=== PATIENT | male | born 1960 | race Caucasian/White ===

== ENCOUNTER 2017-02-20 10:44 | Inpatient (IN) | payer OTHER ==
[2017-02-20 11:08] VITALS: BMI 16.1
[2017-02-20] MEDS ORDERED: SODIUM CHLORIDE 0.9% 1000 ML INFUS.BAG IV ONE (11:16)
--- NOTE | 2017-02-20 11:26 | PDOC ---
History of Present Illness - General Chief Complaint: Shortness of Breath Stated Complaint: DIFFICULTY BREATHING Time Seen by Provider: 02/20/17 11:03 History Source: Patient Exam Limitations: No Limitations - History of Present Illness Initial Comments: 02/20/17 11:23 The patient is a 56M with a PMH of HIV who presents to the ED from his PCP's office (Dr. Burt) with complaints of a cough. The patient states that he has had 2 weeks of worsening cough. He has tried taking robotussin with no relief. He went to his PCP's office today and she noticed he was tachycardic and sent him to the ER. He denies any myalgias, CP, fever, chills, sore throat, nasal congestion or rhinorrhea. His only acute complaints are cough and difficulty breathing. Past History - Past Medical History Allergies/Adverse Reactions: Allergies Allergy/AdvReac Type Severity Reaction Status Date / Time No Known Allergies Allergy Verified 02/20/17 11:01 Home Medications: Ambulatory Orders Albuterol Sulfate Inhaler - [Ventolin HFA Inhaler -] 2 inh PO Q6H PRN #1 inhaler 10/25/16 Atenolol [Tenormin -] 50 mg PO DAILY #30 tablet 10/25/16 Efavirenz/Emtricitab/Tenofovir [Atripla Tablet -] 1 tab PO HS #30 tab 10/25/16 Fenofibrate,Micronized [Fenofibrate] 67 mg PO DAILY #30 capsule 10/25/16 Lactose-Reduced Food [Ensure Liquid] 237 ml PO TID #90 liquid 10/25/16 Loratadine [Claritin -] 10 mg PO DAILY #30 tablet 10/25/16 Multivitamins [Multivit ([facility] Formulary)] 1 tab PO DAILY #30 tab 10/25/16 Nifedipine [Nifedipine ER] 90 mg PO DAILY #30 tablet.er 10/25/16 Tiotropium [place] [Spiriva Respimat] 1 inh PO DAILY #1 mist.inhal 10/25/16 Anemia: No Asthma: No Cancer: No Cardiac Disorders: No CVA: No COPD: Yes (copd and chronic bronchitis) CHF: No Dementia: No Diabetes: No GI Disorders: No Disorders: No HTN: Yes Hypercholesterolemia: Yes Liver Disease: Yes (chronic hep b) Seizures: No Thyroid Disease: No - Surgical History Orthopedic Surgery: Yes (l ankle and r tibia + metal pins) - Suicide/Smoking/Psychosocial Hx Smoking Status: Yes Smoking History: Unknown if ever smoked Have you smoked in the past 12 months: Yes Number of Cigarettes Smoked Daily: 5 If you are a former smoker, when did you quit?: 1 week Cigars Per Day: 0 Hx Alcohol Use: Yes (daily 3-4 beers) Drug/Substance Use Hx: Yes (daily mj) Substance Use Type: Alcohol (2 beers daily), Marijuana Hx Substance Use Treatment: No Review of Systems - Review of Systems Able to Perform ROS?: Yes Comments:: 02/20/17 11:27 GENERAL/CONSTITUTIONAL: No fever or chills. No weakness. HEAD, EYES, EARS, NOSE AND THROAT: No change in vision. No ear pain or discharge. No sore throat. GASTROINTESTINAL: No nausea, vomiting, diarrhea, constipation, or abdominal pain. GENITOURINARY: No dysuria, frequency, hematuria, or change in urination. CARDIOVASCULAR: No chest pain, palpitations, or lightheadedness. RESPIRATORY: Positive for cough and shortness of breath. No wheezing or hemoptysis. MUSCULOSKELETAL: No joint or muscle swelling or pain. No neck or back pain. SKIN: No rash or lesions. NEUROLOGIC: No headache, numbness, tingling, weakness, loss of consciousness, or change in strength/sensation. ENDOCRINE: No increased thirst. No abnormal weight change. HEMATOLOGIC/LYMPHATIC: No anemia, easy bleeding, or history of blood clots. ALLERGIC/IMMUNOLOGIC: No hives or skin allergy. Is the patient limited Sami proficient: No *Physical Exam - Vital Signs Last Vital Signs Temp Pulse Resp BP Pulse Ox 100.7 F H 109 H 22 97/60 98 02/20/17 11:02 02/20/17 11:02 02/20/17 11:02 02/20/17 11:02 02/20/17 11:02 - Physical Exam Comments: 02/20/17 11:28 GENERAL: Well developed, well nourished. Awake and alert. No acute distress. HEENT: Normocephalic, atraumatic. Hearing grossly normal. Moist mucous membranes. NECK: Supple. Full ROM. No JVD. CARDIOVASCULAR: Regular rate and rhythm. No murmurs, rubs, or gallops. PULMONARY: Bibasilar mild rhonchi on expiration. ABDOMINAL: Soft. Non-tender. Non-distended. No rebound or guarding. GENITOURINARY: No CVA tenderness bilaterally. MUSCULOSKELETAL: Normal range of motion at all joints. No bony deformities or tenderness. EXTREMITIES: No cyanosis. No clubbing. No edema. No calf tenderness. SKIN: Warm and dry. Normal capillary refill. No rashes. No jaundice. NEUROLOGICAL: Alert, awake, appropriate. Cranial nerves 2-12 intact. Normal speech. Gait is normal without ataxia. PSYCHIATRIC: Cooperative. Good eye contact. Appropriate mood and affect. ED Treatment Course - LABORATORY CBC & Chemistry Diagram: 02/20/17 11:40 02/20/17 11:40 - RADIOLOGY Radiology Studies Ordered: Category Date Time Status CHEST PA & LAT [RAD] Stat Radiology 02/20/17 11:17 Ordered Medical Decision Making - Medical Decision Making 02/20/17 11:30 The patient is a 56M with a PMH of HIV who presents to the ED with complaints of a cough x 2 weeks. He is febrile and tachycardic with bibasilar rhonchi on expiration. Will follow septic protocol. Pending labs and imaging. Will monitor closely. *DC/Admit/Observation/Transfer Diagnosis at time of Disposition: Cough Dyspnea Qualifiers: Dyspnea type: shortness of breath Qualified Code(s): R06.02 - Shortness of breath; R06.00 - Dyspnea, unspecified; R06.01 - Orthopnea - Discharge Dispostion Condition at time of disposition: Stable Admit: Yes - Referrals Referrals: Estefania Bojorquez COUGAR HUNTER [Primary Care Provider] - - Patient Instructions - Post Discharge Activity
[2017-02-20 11:45] LABS: BASO % 1.4 % (0-2.0); EOS % 0.1 % (0-4.5); HEMATOCRIT 40.2 % (35.4-49); HEMOGLOBIN 13.7 GM/dL (11.7-16.9); LYMPH % 27.3 % (8-40); MCH 35.2 pg (25.7-33.7); MCHC 34.1 g/dl (32.0-35.9); MEAN CELL VOLUME 103.4 fl (80-96); MEAN PLT VOLUME 8.2 fl (7.5-11.1); MONO % 16.5 % (3.8-10.2); NEUT % 54.7 % (42.8-82.8); PLATELET COUNT 163 K/MM3 (134-434); RBC 3.89 M/mm3 (4.00-5.60); RDW 12.4 % (11.9-15.9); WHITE BLOOD COUNT 5.6 K/mm3 (4.0-10.0)
[2017-02-20] MEDS ORDERED: ACETAMINOPHEN 325 MG TABLET (FP) PO ONE (11:52)
[2017-02-20 11:53] LABS: VENOUS PC02 31.1 mmHg (38-52); VENOUS PH 7.44 (7.32-7.42)
[2017-02-20] MEDS ORDERED: ACETAMINOPHEN 325 MG TABLET (FP) ONE ×2 (11:53→20:42)
[2017-02-20 11:58] LABS: INR 0.99 (0.82-1.09); PROTHROMBIN TIME (PATIENT) 11.2 SEC (9.98-11.88)
[2017-02-20 12:02] LABS: ACTIVATED PTT 33.5 SECONDS (26.9-34.4)
[2017-02-20 12:10] LABS: ALBUMIN 3.2 g/dl (3.4-5.0); ANION GAP 8 (8-16); BILIRUBIN,TOTAL 0.5 mg/dL (0.2-1.0); BLOOD UREA NITROGEN 13 mg/dL (7-18); CALCIUM 8.1 mg/dL (8.5-10.1); CHLORIDE 103 mmol/L (98-107); CO2 21 mmol/L (21-32); CREATININE 0.9 mg/dL (0.7-1.3); GLUCOSE,RANDOM 117 mg/dL (74-106); POTASSIUM 4.1 mmol/L (3.5-5.1); SGOT/AST 50 U/L (15-37); SGPT/ALT 40 U/L (12-78); SODIUM 132 mmol/L (136-145); TOT PROT 7.3 g/dl (6.4-8.2)
[2017-02-20 12:13] LABS: ALK PHOS 85 U/L (45-117)
--- NOTE | 2017-02-20 12:43 | EKG ---
Test Reason : Blood Pressure : / mmHG Vent. Rate : 094 BPM Atrial Rate : 094 BPM P-R Int : 128 ms QRS Dur : 088 ms QT Int : 338 ms P-R-T Axes : 080 072 073 degrees QTc Int : 422 ms NORMAL SINUS RHYTHM POSSIBLE LEFT ATRIAL ENLARGEMENT BORDERLINE ECG WHEN COMPARED WITH ECG OF 17-SEP-2012 13:23, NO SIGNIFICANT CHANGE WAS FOUND Confirmed by CHANDRIKA FLORENCE MD ([id number]) on 02/20/2017 12:43:16 PM Referred By: Confirmed By:CHANDRIKA FLORENCE MD
--- NOTE | 2017-02-20 13:01 | PDOC ---
Attending Attestation - Resident Resident Name: Shaji Odonnell - ED Attending Attestation I have performed the following: I have examined & evaluated the patient, The case was reviewed & discussed with the resident, I agree w/resident's findings & plan, Exceptions are as noted - HPI HPI: 02/20/17 12:52 "The patient is a 55 year old man with HIV (atripla, follows at [facility] with Estefania Jaramillo), ex-cocaine user, smokes marijuana, tobacco cigarettes, alcohol, and hypertension presents to the emergency department with 2 weeks of non-productive cough and SOB. He denies CP. Denies leg swelling. Endorses subjective fevers and chills. Denies abd pain/N/V. Denies dysuria. The patient was seen at [facility] today and was found to be tachycardic and hypoxic to low 90s. He denies throat pain, rhinorrhea, or nasal congestion. He denies dysuria, frequency, urgency and hematuria. Allergies: NKDA PCP; Dr. Jaramillo" - Physicial Exam PE: 02/20/17 12:53 "GENERAL: Awake, alert, and fully oriented, in no acute distress HEAD: No signs of trauma EYES: PERRLA, EOMI, sclera anicteric, conjunctiva clear ENT: Auricles normal inspection, hearing grossly normal, nares patent, oropharynx clear without exudates. Moist mucosa NECK: Nontender, no stepoffs, Normal ROM, supple, no lymphadenopathy, JVD, or masses LUNGS: diffuse rhonchi, no wheezes HEART: Regular rate and rhythm, normal S1 and S2, no murmurs, rubs or gallops ABDOMEN: Soft, nontender, normoactive bowel sounds. No guarding, no rebound. No masses EXTREMITIES: Normal range of motion, no edema. No clubbing or cyanosis. No cords, erythema, or tenderness NEUROLOGICAL: Cranial nerves II through XII intact. 5/5 strength and sensation in all extremities, Normal speech, normal gait SKIN: Warm, Dry, normal turgor, no rashes or lesions noted. " - Medical Decision Making 02/20/17 12:54 56 M with HIV presenting with cough and SOB, found to be febrile, hypoxic, and tachycardic. PNA vs influenza/viral URI. Pt with undetectable VL previously but will check [facility] for possible PCP. - Labs, cultures - CXR - IVF, tylenol, abx - Steroids if PCP suspected - Consult w/ Dr. Ni (ID) - Admit
[2017-02-20 14:04] LABS: URINE APPEARANCE SLCLOUDY; URINE BLOOD NEGATIVE (NEGATIVE); URINE COLOR AMBER; URINE GLUCOSE (UA) NEGATIVE (NEGATIVE); URINE KETONE NEGATIVE (NEGATIVE); URINE LEUK ESTERASE NEGATIVE (NEGATIVE); URINE NITRITE NEGATIVE (NEGATIVE)
[2017-02-20 14:22] LABS: URINE PROTEIN 2+ (NEGATIVE)
[2017-02-20 14:26] LABS: EPI CELLS RARE /HPF (FEW); URINE BACTERIA RARE /hpf (NONE SEEN); URINE HYALINE CAST 7 /lpf; URINE MUCUS RARE
[2017-02-20] MEDS ORDERED: cefTRIAXone 1 GM/50 ML BAG (PRE-DOCKED) IVPB SCH (16:45)
[2017-02-20] MEDS ORDERED: CEFTRIAXONE 1 GM/50 ML BAG ONE (17:02)
--- NOTE | 2017-02-20 17:17 | PN ---
Progress Note (short form) - Note Progress Note: ID consult dictated imp/reccd sent from [facility] with SOB and tachycardia 56 year old man with HIV for over 30 years- well controlled, undectactable viral load, on atripla smokes and drinks beer +marijuana use no injection drug use or pills about two weeks ago started coughing and became SOB with exertion no hemoptysis (recent PPD negative) he stopped smoking no beer either unable to eat due to SOB, drinking soup no dysphagia febrile to 100.7 in ED influenza screen negative COPD exacerbation ?pneumonia stable HIV cd4 count 655, wsuppressed viral load- doubt OI history hep B etoh/cig use cultures sent rocephin/zithromax-CAP treatment ct scan chest legionella urinary antigen ?steroids continue atripla
[2017-02-20] MEDS ORDERED: ACETAMINOPHEN 325 MG TABLET (FP) PO PRN (17:47)
[2017-02-20] MEDS: CEFTRIAXONE 1 G/50 ML PREMIX 50 ML IVPB SCH (18:01)
[2017-02-20] MEDS: ATENOLOL 50 MG TABLET (FP) PO SCH (18:01)
[2017-02-20] MEDS ORDERED: AZITHROMYCIN IVPB 500 MG in DEXTROSE 5%-WATER - 250 ML IVPB ONE (19:00)
[2017-02-20] MEDS ORDERED: AZITHROMYCIN IVPB 250 ML IVPB ONE (19:34)
[2017-02-20] MEDS ORDERED: ALBUTEROL SO4 2.5/IPRATROPIUM 0.5 INH SOL 3 ML VIAL.NEB. NEB SCH (20:00)
--- NOTE | 2017-02-20 20:02 | HP ---
CHIEF COMPLAINT: Fever and cough PCP: Dr. Estefania Jaramillo, [facility] HISTORY OF PRESENT ILLNESS: 55 year-old male with HTN, HLD, HIV on Atripla, COPD, alcohol dependence, chronic Hep B, and current everyday smoker, presents with cough, SOB, and subjective fever, chills x 2 weeks. Earlier today he went to the [facility] where he was found to be tachycardic and hypoxic to the low 90s. He was directed to the ED. ER course was notable for: (1) T100.7-->102.3; p109 BP 97/60 (2) WBC 5.6k; Na 132 (3) CXR: unremarkable (4) CT chest: possible pneumonia Recent Travel: No PAST MEDICAL HISTORY: Hypertension HIV COPD Alcohol dependence Chronic Hep B PAST SURGICAL HISTORY: Left ankle Right tibia Social History: Smoking: current every day smoker Alcohol: beer Drugs: marijuana; former cocaine user Family History: Allergies No Known Allergies Allergy (Verified 02/20/17 11:01) HOME MEDICATIONS: Home Medications Medication Instructions Recorded Albuterol Sulfate Inhaler - 2 inh PO Q6H PRN #1 inhaler 10/25/16 [Ventolin HFA Inhaler -] Atenolol [Tenormin -] 50 mg PO DAILY #30 tablet 10/25/16 Efavirenz/Emtricitab/Tenofovir 1 tab PO HS #30 tab 10/25/16 [Atripla Tablet -] Fenofibrate,Micronized 67 mg PO DAILY #30 capsule 10/25/16 [Fenofibrate] Lactose-Reduced Food [Ensure 237 ml PO TID #90 liquid 10/25/16 Liquid] Loratadine [Claritin -] 10 mg PO DAILY #30 tablet 10/25/16 Multivitamins [Multivit ([facility] 1 tab PO DAILY #30 tab 10/25/16 Formulary)] Nifedipine [Nifedipine ER] 90 mg PO DAILY #30 tablet.er 10/25/16 Tiotropium [place] [Spiriva 1 inh PO DAILY #1 mist.inhal 10/25/16 Respimat] REVIEW OF SYSTEMS CONSTITUTIONAL: +fever, chills Absent: diaphoresis, generalized weakness, malaise, loss of appetite, weight change HEENT: Absent: rhinorrhea, nasal congestion, throat pain, throat swelling, difficulty swallowing, mouth swelling, ear pain, eye pain, visual changes CARDIOVASCULAR: Absent: chest pain, syncope, palpitations, irregular heart rate, lightheadedness , peripheral edema RESPIRATORY: +SOB, cough Absent: dyspnea with exertion, orthopnea, wheezing, stridor, hemoptysis GASTROINTESTINAL: Absent: abdominal pain, abdominal distension, nausea, vomiting, diarrhea, constipation, melena, hematochezia GENITOURINARY: Absent: dysuria, frequency, urgency, hesitancy, hematuria, flank pain, genital pain MUSCULOSKELETAL: Absent: myalgia, arthralgia, joint swelling, back pain, neck pain SKIN: Absent: rash, itching, pallor HEMATOLOGIC/IMMUNOLOGIC: Absent: easy bleeding, easy bruising, lymphadenopathy, frequent infections ENDOCRINE: Absent: unexplained weight gain, unexplained weight loss, heat intolerance, cold intolerance NEUROLOGIC: Absent: headache, focal weakness or paresthesias, dizziness, unsteady gait, seizure, mental status changes, bladder or bowel incontinence PSYCHIATRIC: Absent: anxiety, depression, suicidal or homicidal ideation, hallucinations. PHYSICAL EXAMINATION Vital Signs - 24 hr 02/20/17 02/20/17 02/20/17 11:02 11:48 12:00 Temperature 100.7 F H Pulse Rate 109 H Pulse Rate [ Apical] Respiratory 22 Rate Blood Pressure 97/60 Blood Pressure [Right Arm] O2 Sat by Pulse 98 96 96 Oximetry (%) 02/20/17 02/20/17 16:00 16:14 Temperature 98.4 F Pulse Rate Pulse Rate [ 78 Apical] Respiratory 18 Rate Blood Pressure Blood Pressure 99/67 [Right Arm] O2 Sat by Pulse 96 Oximetry (%) GENERAL: Awake, alert, and fully oriented, in no acute distress. HEAD: Normal with no signs of trauma. EYES: Pupils equal, round and reactive to light, extraocular movements intact, sclera anicteric, conjunctiva clear. No lid lag. EARS, NOSE, THROAT: Ears normal, nares patent, oropharynx clear without exudates. Moist mucous membranes. NECK: Normal range of motion, supple without lymphadenopathy, JVD, or masses. LUNGS: Rhonchi and prolonged expiratory phase on right HEART: Regular rate and rhythm, normal S1 and S2 ABDOMEN: Soft, nontender, not distended, normoactive bowel sounds, no guarding, no rebound, no masses. MUSCULOSKELETAL: Normal range of motion at all joints. No bony deformities or tenderness. No CVA tenderness. UPPER EXTREMITIES: 2+ pulses, warm, well-perfused. No cyanosis. No clubbing. No peripheral edema. LOWER EXTREMITIES: 2+ pulses, warm, well-perfused. No calf tenderness. No peripheral edema. NEUROLOGICAL: Cranial nerves II-XII intact. Normal speech. Normal gait. PSYCHIATRIC: Cooperative. Good eye contact. Appropriate mood and affect. SKIN: Mildly diaphoretic Laboratory Results - last 24 hr 02/20/17 02/20/17 02/20/17 11:40 11:40 11:40 WBC 5.6 D RBC 3.89 L Hgb 13.7 Hct 40.2 MCV 103.4 H MCH 35.2 H MCHC 34.1 RDW 12.4 Plt Count 163 MPV 8.2 Neutrophils % 54.7 D Lymphocytes % 27.3 D Monocytes % 16.5 H D Eosinophils % 0.1 D Basophils % 1.4 PT with INR 11.20 INR 0.99 PTT (Actin FS) 33.5 VBG pH POC VBG pCO2 POC VBG pO2 Mixed VBG HCO3 Sodium 132 L Potassium 4.1 Chloride 103 Carbon Dioxide 21 D Anion Gap 8 BUN 13 D Creatinine 0.9 D Creat Clearance w eGFR > 60 Random Glucose 117 H D Lactic Acid Calcium 8.1 L Total Bilirubin 0.5 D AST 50 H D ALT 40 D Alkaline Phosphatase 85 LD Total Creatine Kinase 100 Troponin I < 0.02 Total Protein 7.3 Albumin 3.2 L Urine Color Urine Appearance Urine pH Ur Specific [place] Urine Protein Urine Glucose (UA) Urine Ketones Urine Blood Urine Nitrite Urine Bilirubin Urine Urobilinogen Ur Leukocyte Esterase Urine WBC (Auto) Urine RBC (Auto) Ur Epithelial Cells Urine Bacteria Hyaline Casts Urine Mucus Blood Type Antibody Screen 02/20/17 02/20/17 02/20/17 11:40 11:40 11:40 WBC RBC Hgb Hct MCV MCH MCHC RDW Plt Count MPV Neutrophils % Lymphocytes % Monocytes % Eosinophils % Basophils % PT with INR INR PTT (Actin FS) VBG pH POC VBG pCO2 POC VBG pO2 Mixed VBG HCO3 Sodium Potassium Chloride Carbon Dioxide Anion Gap BUN Creatinine Creat Clearance w eGFR Random Glucose Lactic Acid 1.8 Calcium Total Bilirubin AST ALT Alkaline Phosphatase LD Total 94 Creatine Kinase Troponin I Total Protein Albumin Urine Color Urine Appearance Urine pH Ur Specific [place] Urine Protein Urine Glucose (UA) Urine Ketones Urine Blood Urine Nitrite Urine Bilirubin Urine Urobilinogen Ur Leukocyte Esterase Urine WBC (Auto) Urine RBC (Auto) Ur Epithelial Cells Urine Bacteria Hyaline Casts Urine Mucus Blood Type O POSITIVE Antibody Screen Negative 02/20/17 02/20/17 11:45 13:37 WBC RBC Hgb Hct MCV MCH MCHC RDW Plt Count MPV Neutrophils % Lymphocytes % Monocytes % Eosinophils % Basophils % PT with INR INR PTT (Actin FS) VBG pH 7.44 H POC VBG pCO2 31.1 L POC VBG pO2 46.0 Mixed VBG HCO3 20.7 Sodium Potassium Chloride Carbon Dioxide Anion Gap BUN Creatinine Creat Clearance w eGFR Random Glucose Lactic Acid Calcium Total Bilirubin AST ALT Alkaline Phosphatase LD Total Creatine Kinase Troponin I Total Protein Albumin Urine Color [place] Urine Appearance Slcloudy Urine pH 5.0 Ur Specific [place] 1.025 Urine Protein 2+ H Urine Glucose (UA) Negative Urine Ketones Negative Urine Blood Negative Urine Nitrite Negative Urine Bilirubin 2.0 Urine Urobilinogen 2.0 Ur Leukocyte Esterase Negative Urine WBC (Auto) 1 Urine RBC (Auto) 2 Ur Epithelial Cells Rare Urine Bacteria Rare Hyaline Casts 7 Urine Mucus Rare Blood Type Antibody Screen ASSESSMENT/PLAN: 55 year-old male with HTN, HLD, HIV on Atripla, COPD, alcohol dependence, chronic Hep B, and current everyday smoker, presents with cough, SOB, and subjective fever and chills x 2 weeks. SIRS possibly secondary to CAP --Temp spike to 102.3; tachycardic to 109; mildly diaphoretic --02/20 CT chest: Left lung base opacity, possible pneumonia; RLL centrilobular nodules, inflammatory v. infectious --no leukocytosis --influenza negative --empiric ceftriaxone (day #1) and azithro (day #1) --duonebs --gentle fluids --ID following Pulmonary nodules Pulmonary lymphadenopathy COPD --additional findings on CT: 4mm sold nodule RUL and 5-6mm solid nodule LLL; right hilar lymph node and mediastinal lymph node larger than previous; increased bronchial wall thickening c/w nonspecific airways disease --pulmonary consult requested --continue Spiriva, duonebs HIV --well-controlled, undetectable viral load --continue Atripla Hypertension --normotensive at time of admission --continue atenolol but hold nifedipine for now due to sepsis Hyperlipidemia --continue fenofibrate --not on statin Alcohol dependence --monitor for s/s of withdrawal --librium PRN Chronic Hepatitis B --stable Hyponatremia --received NS x 1L in ED --repeat in am FEN Fluids: NS @ 50mL/hr Electrolytes: replete as indicated Nutrition: low sodium diet DVT prophylaxis: lovenox, oob, ambulation Physical therapy evaluation Dispo: continues to require inpatient care. Full Code. Visit type - Emergency Visit Emergency Visit: Yes ED Registration Date: 02/20/17 Care time: The patient presented to the Emergency Department on the above date and was hospitalized for further evaluation of their emergent condition. - New Patient This patient is new to me today: Yes Date on this admission: 02/21/17 - Critical Care Critical Care patient: No
[2017-02-20] MEDS ORDERED: PATIENT'S OWN MEDICATION (NON-FORMULARY) (Efavirenz/Emtricitab/Tenofovir 1 TAB) PO SCH (22:00)
--- NOTE | 2017-02-20 22:30 | CONS ---
DATE OF CONSULTATION: DATE OF DICTATION: 02/20/2017 INFECTIOUS DISEASE CONSULTATION REQUESTING PHYSICIAN: Hospitalist Service CONSULTING PHYSICIAN: Cecily Ni M.D. HISTORY OF PRESENT ILLNESS: This is a 56-year-old man who was sent from the [facility] with shortness of breath and tachycardia. He presented to the [facility] today with 2-3 weeks of cough and worsening shortness of breath. He states since the weather changed and became very cold about 2-3 weeks ago, he started having cough. He had yellow sputum. There was no fever. There was no hemoptysis. He was comfortable at rest but was not able to exert himself at all. He denied any chest pain or pressure. There is no history of any travel. He had these symptoms and was sent to the emergency room with these complaints. In the ER he was noted to have a fever of 100.7 and did complain of shortness of breath. PAST MEDICAL HISTORY: Notable for of hypertension, hypercholesterolemia. He has been HIV positive he tells me for at least 30 years and has a history of Hepatitis B. SURGICAL HISTORY: Notable for left ankle and right tibia fractures. He has pins in place. FAMILY HISTORY: Notable for heart disease in his grandparents and his father. His mother of vascular disease. ALLERGIES: He has no known drug allergies. CURRENT MEDICATIONS: Include albuterol inhaler, atenolol, Atripla, fenofibrate, Ensure, Claritin, multivitamins, nifedipine, and Spiriva. SOCIAL HISTORY: He has a roommate who is not sick. He denies any travel. He normally smokes, but has not had a cigarette for 2 weeks. He normally drinks beer, but he has not had a drink for 2 weeks. He occasionally smokes marijuana; he has not been doing this either. He denies any intravenous drug use. REVIEW OF SYSTEMS: He denies fevers or chills. He notes shortness of breath. He has not had not any nausea, vomiting. He has no visual changes. He has no headache. PHYSICAL EXAMINATION: Vital signs: Temperature 100.7 which is temperature in the ER, his pulse is 78 but he is resting comfortably, was 109 on admission, blood pressure 99/67, respiratory rate 18, saturating 96%, he weighs 100 pounds. HEENT: Normocephalic. Eyes are anicteric. Neck: Supple. Lungs: Clear to auscultation. He has diminished breath sounds. His lungs have scattered rhonchi. He has no thrush. Heart: Regular rate and rhythm. Abdomen: Soft, nontender. Extremities: Without edema. LABORATORY: White count is 5.6, hemoglobin is 13.7, platelets are 163. His BUN and creatinine are 13 and 0.9 with a sodium of 132. His LFTs are notable for AST of 50. LDH is normal at 94. Blood cultures are pending. Influenza screen was done and is negative. Chest x-ray was done and shows no active disease. IMPRESSION: In summary, this is a 56-year-old man, admitted with progressive 2 weeks of shortness of breath with cough and yellow sputum, mainly with exertion, no hemoptysis, recent PPD negative, fever to 100.7 in the emergency room with a negative influenza screen. He has been symptomatic for 2 years, suggestive of chronic obstructive pulmonary disease exacerbation, cannot rule out pneumonia with a fever, stable human immunodeficiency virus disease with CD4 of 655 and a suppressed viral load. I doubt he has an opportunistic infection. History of Hepatitis B, ethyl alcohol and cigarette use. Would send cultures. Would treat him with Rocephin and Zithromax for community acquired pneumonia. Would obtain sputum cultures as well as a legionella urinary antigen. Blood cultures have been sent. Would CAT scan his chest and consider steroids. Would continue Atripla at this time. Further recommendations to follow. Case was discussed with the emergency room staff. Lucas [id number]
[2017-02-20] MEDS: TIOTROPIUM BROMIDE 18 MCG/INH (DEVICE W/ 5 CAPSULES) IH SCH (22:47)
[2017-02-20] MEDS: EFAVIRENZ 600 MG TABLET PO SCH (22:47)
[2017-02-20] MEDS: EMTRICITABINE 200MG/TENOFOVIR 300MG PO SCH (22:47)
[2017-02-20] MEDS ORDERED: SODIUM CHLORIDE 1,000 ML IV SCH (23:00)
[2017-02-21] MEDS: ALBUTEROL SO4 2.5/IPRATROPIUM 0.5 INH SOL 3 ML VIAL.NEB. NEB SCH ×5 (00:43→21:52)
[2017-02-21] MEDS ORDERED: chlordiazePOXIDE HCL 25 MG CAPSULE PO PRN (01:38)
[2017-02-21] MEDS: SODIUM CHLORIDE 1,000 ML IV SCH (06:51)
--- NOTE | 2017-02-21 07:51 | PN ---
Physical Exam: SUBJECTIVE: Patient seen and examined. SOB is improved. OBJECTIVE: Vital Signs Period Temp Pulse Resp BP Sys/Muñoz Pulse Ox Last 24 Hr 98.4 F-102.3 F 78-109 16-22 93-103/57-67 96-99 GENERAL: The patient is awake, alert, and fully oriented, in no acute distress. HEAD: Normal with no signs of trauma. EYES: PERRL, extraocular movements intact, sclera anicteric, conjunctiva clear. No ptosis. ENT: Ears normal, nares patent, oropharynx clear without exudates, moist mucous membranes. NECK: Trachea midline, full range of motion, supple. LUNGS: Scattered rhonchi HEART: Regular rate and rhythm, S1, S2 without murmur, rub or gallop. ABDOMEN: Soft, nontender, nondistended, normoactive bowel sounds, no guarding, no rebound EXTREMITIES: 2+ pulses, warm, well-perfused, no edema. NEUROLOGICAL: Cranial nerves II through XII grossly intact. Normal speech, gait not observed. SKIN: mildly diaphoretic Laboratory Results - last 24 hr 02/20/17 02/20/17 02/20/17 11:40 11:40 11:40 WBC 5.6 D RBC 3.89 L Hgb 13.7 Hct 40.2 MCV 103.4 H MCH 35.2 H MCHC 34.1 RDW 12.4 Plt Count 163 MPV 8.2 Neutrophils % 54.7 D Lymphocytes % 27.3 D Monocytes % 16.5 H D Eosinophils % 0.1 D Basophils % 1.4 PT with INR 11.20 INR 0.99 PTT (Actin FS) 33.5 VBG pH POC VBG pCO2 POC VBG pO2 Mixed VBG HCO3 Sodium 132 L Potassium 4.1 Chloride 103 Carbon Dioxide 21 D Anion Gap 8 BUN 13 D Creatinine 0.9 D Creat Clearance w eGFR > 60 Random Glucose 117 H D Lactic Acid Calcium 8.1 L Total Bilirubin 0.5 D AST 50 H D ALT 40 D Alkaline Phosphatase 85 LD Total Creatine Kinase 100 Troponin I < 0.02 Total Protein 7.3 Albumin 3.2 L Urine Color Urine Appearance Urine pH Ur Specific [place] Urine Protein Urine Glucose (UA) Urine Ketones Urine Blood Urine Nitrite Urine Bilirubin Urine Urobilinogen Ur Leukocyte Esterase Urine WBC (Auto) Urine RBC (Auto) Ur Epithelial Cells Urine Bacteria Hyaline Casts Urine Mucus Blood Type Antibody Screen 02/20/17 02/20/17 02/20/17 11:40 11:40 11:40 WBC RBC Hgb Hct MCV MCH MCHC RDW Plt Count MPV Neutrophils % Lymphocytes % Monocytes % Eosinophils % Basophils % PT with INR INR PTT (Actin FS) VBG pH POC VBG pCO2 POC VBG pO2 Mixed VBG HCO3 Sodium Potassium Chloride Carbon Dioxide Anion Gap BUN Creatinine Creat Clearance w eGFR Random Glucose Lactic Acid 1.8 Calcium Total Bilirubin AST ALT Alkaline Phosphatase LD Total 94 Creatine Kinase Troponin I Total Protein Albumin Urine Color Urine Appearance Urine pH Ur Specific [place] Urine Protein Urine Glucose (UA) Urine Ketones Urine Blood Urine Nitrite Urine Bilirubin Urine Urobilinogen Ur Leukocyte Esterase Urine WBC (Auto) Urine RBC (Auto) Ur Epithelial Cells Urine Bacteria Hyaline Casts Urine Mucus Blood Type O POSITIVE Antibody Screen Negative 02/20/17 02/20/17 11:45 13:37 WBC RBC Hgb Hct MCV MCH MCHC RDW Plt Count MPV Neutrophils % Lymphocytes % Monocytes % Eosinophils % Basophils % PT with INR INR PTT (Actin FS) VBG pH 7.44 H POC VBG pCO2 31.1 L POC VBG pO2 46.0 Mixed VBG HCO3 20.7 Sodium Potassium Chloride Carbon Dioxide Anion Gap BUN Creatinine Creat Clearance w eGFR Random Glucose Lactic Acid Calcium Total Bilirubin AST ALT Alkaline Phosphatase LD Total Creatine Kinase Troponin I Total Protein Albumin Urine Color [place] Urine Appearance Slcloudy Urine pH 5.0 Ur Specific [place] 1.025 Urine Protein 2+ H Urine Glucose (UA) Negative Urine Ketones Negative Urine Blood Negative Urine Nitrite Negative Urine Bilirubin 2.0 Urine Urobilinogen 2.0 Ur Leukocyte Esterase Negative Urine WBC (Auto) 1 Urine RBC (Auto) 2 Ur Epithelial Cells Rare Urine Bacteria Rare Hyaline Casts 7 Urine Mucus Rare Blood Type Antibody Screen Active Medications Generic Name Dose Route Start Last Admin Trade Name Freq PRN Reason Stop Dose Admin Acetaminophen 650 mg 02/20/17 17:47 02/20/17 20:40 Tylenol - PO 650 mg Q6H PRN Administration FEVER Albuterol/Ipratropium 1 amp 02/20/17 22:52 02/21/17 00:43 Duoneb - NEB Not Given RQID IJEOMA Atenolol 50 mg 02/20/17 17:45 02/20/17 18:01 Tenormin - PO Not Given DAILY IJEOMA Chlordiazepoxide HCl 25 mg 02/21/17 01:38 Librium - PO Q6H PRN WITHDRAWAL(CONT SUBST) Efavirenz 600 mg 02/20/17 22:00 02/20/17 22:47 Sustiva - PO 600 mg HS IJEOMA Administration Emtricitabine/Tenofovir 1 tab 02/20/17 22:00 02/20/17 22:47 Truvada PO 1 tab HS IJEOMA Administration Enoxaparin Sodium 40 mg 02/21/17 10:00 Lovenox - SQ DAILY IJEOMA CEFTRIAXONE 1 G/50 ML PREMIX 50 mls @ 100 mls/hr 02/20/17 16:45 02/20/17 18: 01 Ceftriaxone 1 Gm-D5w Bag IVPB 100 mls/hr DAILY IJEOMA Administration Azithromycin 250 mg/ Dextrose 250 mls @ 250 mls/hr 02/21/17 10:00 IVPB 02/24/17 10:59 DAILY IJEOMA Sodium Chloride 1,000 mls @ 50 mls/hr 02/21/17 06:31 02/21/17 06:51 Normal Saline - IV 50 mls/hr ASDIR IJEOMA Administration Loratadine 10 mg 02/21/17 10:00 Claritin - PO DAILY IJEOMA Multivitamins/Minerals/Vitamin C 1 tab 02/21/17 10:00 Tab-A-Vit - PO DAILY IJEOMA Nifedipine 90 mg 02/21/17 10:00 Procardia Xl - PO DAILY IJEOMA Tiotropium [place] 1 puff 02/20/17 21:15 02/20/17 22:47 Spiriva - IH 1 puff DAILY IJEOMA Administration ASSESSMENT/PLAN: 55 year-old male with HTN, HLD, HIV on Atripla, COPD, alcohol dependence, chronic Hep B, and current everyday smoker, presents with cough, SOB, and subjective fever and chills x 2 weeks. SIRS possibly secondary to CAP --Temp spike to 102.3; tachycardic to 109; mildly diaphoretic --02/20 CT chest: Left lung base opacity, possible pneumonia; RLL centrilobular nodules, inflammatory v. infectious --no leukocytosis --influenza negative --sputum culture pending --empiric ceftriaxone (day #1) and azithro (day #1) --duonebs --gentle fluids --ID following Pulmonary nodules Pulmonary lymphadenopathy COPD --additional findings on CT: 4mm sold nodule RUL and 5-6mm solid nodule LLL; right hilar lymph node and mediastinal lymph node larger than previous; increased bronchial wall thickening c/w nonspecific airways disease --pulmonary consult requested --continue chelsie Goddard HIV --well-controlled, undetectable viral load --continue Atripla Hypertension --has been normotensive --continue atenolol but hold nifedipine Hyperlipidemia --continue fenofibrate --not on statin Alcohol dependence --monitor for s/s of withdrawal --librium PRN Chronic Hepatitis B --stable Hyponatremia --received NS x 1L in ED --repeat in am FEN Fluids: NS @ 50mL/hr Electrolytes: replete as indicated Nutrition: low sodium diet DVT prophylaxis: lovenox, oob, ambulation Physical therapy evaluation Dispo: continues to require inpatient care. Full Code. Visit type - Emergency Visit Emergency Visit: Yes ED Registration Date: 02/20/17 Care time: The patient presented to the Emergency Department on the above date and was hospitalized for further evaluation of their emergent condition. - New Patient This patient is new to me today: No - Critical Care Critical Care patient: No
[2017-02-21 08:06] LABS: BASO % 0.5 % (0-2.0); EOS % 0.1 % (0-4.5); HEMATOCRIT 38.8 % (35.4-49); HEMOGLOBIN 13.1 GM/dL (11.7-16.9); LYMPH % 33.1 % (8-40); MCH 35.1 pg (25.7-33.7); MCHC 33.7 g/dl (32.0-35.9); MEAN CELL VOLUME 104.1 fl (80-96); MEAN PLT VOLUME 8.4 fl (7.5-11.1); MONO % 11.1 % (3.8-10.2); NEUT % 55.2 % (42.8-82.8); PLATELET COUNT 169 K/MM3 (134-434); RBC 3.73 M/mm3 (4.00-5.60); RDW 12.5 % (11.9-15.9); WHITE BLOOD COUNT 7.1 K/mm3 (4.0-10.0)
[2017-02-21] MEDS ORDERED: ALBUTEROL SO4 2.5/IPRATROPIUM 0.5 INH SOL 3 ML VIAL.NEB. NEB ONE (08:27)
[2017-02-21 08:42] LABS: ALBUMIN 2.9 g/dl (3.4-5.0); ANION GAP 9 (8-16); BLOOD UREA NITROGEN 10 mg/dL (7-18); CALCIUM 7.7 mg/dL (8.5-10.1); CHLORIDE 105 mmol/L (98-107); CO2 21 mmol/L (21-32); GLUCOSE,RANDOM 84 mg/dL (74-106); MAGNESIUM 2.1 mg/dL (1.8-2.4); POTASSIUM 3.4 mmol/L (3.5-5.1); SODIUM 135 mmol/L (136-145)
[2017-02-21 08:46] LABS: ALK PHOS 74 U/L (45-117); BILIRUBIN,TOTAL 0.5 mg/dL (0.2-1.0); CREATININE 0.6 mg/dL (0.7-1.3); SGOT/AST 32 U/L (15-37); SGPT/ALT 30 U/L (12-78); TOT PROT 6.6 g/dl (6.4-8.2)
[2017-02-21] MEDS ORDERED: TIOTROPIUM BROMIDE PO SCH (10:00)
[2017-02-21] MEDS ORDERED: NIFEdipine E.R. 90 MG TABLET (FP) PO SCH (10:00)
[2017-02-21] MEDS ORDERED: LORATADINE 10 MG TABLET ONE (10:52)
[2017-02-21] MEDS ORDERED: CEFTRIAXONE 1 GM/50 ML BAG ONE (10:53)
[2017-02-21] MEDS: CEFTRIAXONE 1 G/50 ML PREMIX 50 ML IVPB SCH (11:04)
[2017-02-21] MEDS: LORATADINE 10 MG TABLET PO SCH (11:04)
[2017-02-21] MEDS: ENOXAPARIN NA (PORCINE) 40 MG/0.4 ML DISP.SYRIN SQ SCH (11:05)
[2017-02-21] MEDS: ATENOLOL 50 MG TABLET (FP) PO SCH (11:05)
[2017-02-21] MEDS: MULTIVITAMINS (DAILY MVI) TABLET (FP) PO SCH (11:05)
[2017-02-21] MEDS: AZITHROMYCIN IVPB 250 MG in DEXTROSE 5%-WATER - 250 ML IVPB SCH (12:51)
--- NOTE | 2017-02-21 14:06 | PN ---
Progress Note (short form) - Note Progress Note: feels better still some fevers day #2 rocephin/zithromax Vital Signs Period Temp Pulse Resp BP Sys/Muñoz Pulse Ox Last 24 Hr 98.1 F-102.3 F 72-95 16-20 93-108/57-74 96-99 cor-rrr lungs scattered rhonchi abd soft,nt ext no edema CBC, BMP 02/21/17 06:00 02/21/17 06:[address], left base infiltrate, bronchitis, nodules, right hilar adenoopathy Microbiology 02/20/17 11:40 Blood - Peripheral Venous Blood Culture - Preliminary NO GROWTH OBTAINED AFTER 24 HOURS, INCUBATION TO CONTINUE FOR 4 DAYS. 02/20/17 11:40 Blood - Peripheral Venous Blood Culture - Preliminary NO GROWTH OBTAINED AFTER 24 HOURS, INCUBATION TO CONTINUE FOR 4 DAYS. 02/20/17 11:45 Nasopharyngeal Swab Influenza Types A,B Antigen (ALICIA) - Final 02/20/17 11:45 Nasopharyngeal Swab - Final imp/reccd COPD exacerbation ?pneumonia stable HIV cd4 count 655, wsuppressed viral load- doubt OI history hep B etoh/cig use cultures sent rocephin/zithromax-CAP treatment-day #2 legionella urinary antigen ?steroids- pulmonary consult pending continue atripla
[2017-02-21] MEDS: TIOTROPIUM BROMIDE 18 MCG/INH (DEVICE W/ 5 CAPSULES) IH SCH (15:11)
[2017-02-21 16:14] LABS: URINE APPEARANCE CLEAR; URINE BILIRUBIN NEGATIVE (NEGATIVE); URINE BLOOD NEGATIVE (NEGATIVE); URINE COLOR YELLOW; URINE GLUCOSE (UA) 1+ (NEGATIVE); URINE KETONE NEGATIVE (NEGATIVE); URINE LEUK ESTERASE NEGATIVE (NEGATIVE); URINE NITRITE NEGATIVE (NEGATIVE); URINE PROTEIN NEGATIVE (NEGATIVE); URINE UROBILINOGEN NEGATIVE mg/dL (0.2-1.0)
--- NOTE | 2017-02-21 16:21 | PN ---
Progress Note (short form) - Note Progress Note: PULMONARY CONSULTATION DICTATED 02/21/17 IMP DYSPNEA PNEUMONIA LLL PLEURAL BASE DENSITY LIKELY INFECTIOUS CANNOT EXCLUDE MALIGNANCY HILAR AND MEDIASTINAL ADENOPATHY LIKELY REACTIVE HIV H/O HEP B PLAN IV ANTIBIOTICS PER ID INHALED BRONCHODILATORS O2 SHORT COURSE OF STEROIDS CULTURES F/U CHEST CT6-8 WKS TO DOCUMENT RESOLUTION OF LLL DENSITY,HILAR AND MEDIASTINAL ADENOPATHY DVT PROPHYLAXIS DR ZAMARRIPA Problem List - Problems (1) Pneumonia Code(s): J18.9 - PNEUMONIA, UNSPECIFIED ORGANISM (2) Cough Code(s): R05 - COUGH (3) Dyspnea Code(s): R06.00 - DYSPNEA, UNSPECIFIED Qualifiers: Dyspnea type: shortness of breath Qualified Code(s): R06.02 - Shortness of breath; R06.00 - Dyspnea, unspecified; R06.01 - Orthopnea (4) Chronic hepatitis B Code(s): B18.1 - CHRONIC VIRAL HEPATITIS B WITHOUT DELTA-AGENT (5) HIV (human immunodeficiency virus infection) Code(s): Z21 - ASYMPTOMATIC HUMAN IMMUNODEFICIENCY VIRUS INFECTION STATUS (6) Hypertension Code(s): I10 - ESSENTIAL (PRIMARY) HYPERTENSION (7) Smoker Code(s): F17.200 - NICOTINE DEPENDENCE, UNSPECIFIED, UNCOMPLICATED (8) Weight loss Code(s): R63.4 - ABNORMAL WEIGHT LOSS (9) Mediastinal adenopathy Code(s): R59.0 - LOCALIZED ENLARGED LYMPH NODES (10) Hilar adenopathy Code(s): R59.0 - LOCALIZED ENLARGED LYMPH NODES
--- NOTE | 2017-02-21 17:58 | CONS ---
DATE OF CONSULTATION: 02/21/2017 REFERRING PHYSICIAN: Deirdre Myles NP HISTORY OF PRESENT ILLNESS: The patient is a 56-year-old white male with a past medical history of HIV for approximately 30 years, hypertension, hypercholesterolemia, longstanding history of Hepatitis B, longstanding history of tobacco use, previously smoked 2 to 2-1/2 packs per day, past couple of weeks smoked 1/2 pack per day, admitted to [facility] with complaint of 2-3 week history of increasing shortness of breath and cough. Patient states that since the weather changed, became very cold, a few weeks ago he started having a cough productive of yellow sputum, denied any hemoptysis, denies any chest pain or palpitations. He also started developing increasing weakness and some wheezing. He presented to the emergency room with the above. In the ER he was noted to be febrile to a temperature of 100.7. He also complained of shortness of breath. He had a CT scan of the chest performed, which revealed left lower lobe pleural based density, mild mediastinal adenopathy, and some nodular densities in the right lower lobe. Of note is patient, these are new findings from previous scan in 2016. He was admitted to the floor for pneumonia. He denies any recent travel. There is no history of DVT or PE in the past. He denies any history of occupational exposure to the chemicals or fumes. There is no history of hemoptysis, denies any history of TB. PAST MEDICAL HISTORY: Again includes hypertension, hypercholesterolemia, HIV for 30 years, Hepatitis B, as well as bronchitis. PAST SURGICAL HISTORY: Includes left ankle and right tibial fractures. He has pins in place. SOCIAL HISTORY: [place], physician general internal medicine. History of smoking 2 to 2.5 packs per day for many years. MEDICATION: Current medications include albuterol atenolol, Atripla, fenofibrate, Ensure, Multivites, nifedipine, Spiriva, and Zithromax, Truvada, and ceftriaxone, and Claritin. REVIEW OF SYSTEMS: Positive cough. Positive shortness of breath. Positive weakness. Positive fever. No chest pain. No palpitations. No hemoptysis. No abdominal pain. Positive weight loss. Positive sweats. PHYSICAL EXAMINATION: General: The patient is a cachectic white male, well developed, awake, alert, in no acute distress. Vital signs: He is currently afebrile. Blood pressure 103/64, respiratory rate is 20, O2 saturation is 96% on 2 L. HEENT: Head is normocephalic, atraumatic. Neck: Supple. Heart: Regular. S1, S2. Chest: A few scattered bilateral rhonchi. Abdomen: Soft. Bowel sounds positive. Extremities: No cyanosis, edema. LABORATORY: WBC is 7.1, hemoglobin 13.1, hematocrit 38.8, platelet count 169,000. INR is 0.99. Venous blood gas: pH 7.44, pCO2 of 31, pO2 of 46, and bicarbonate 20. BUN 10, creatinine 0.6. Chest CT again is pleural based opacity left lung base, may be subsegmental atelectasis and/or pneumonia and early mass. Two lobular nodules superior segment right lower lobe measuring over 5 mm, and 4-mm semisolid nodule right upper lobe, enlarged right hilar node 1.5 cm, borderline size mediastinal nodes. Increased bronchial wall thickening. IMPRESSION: 1. Fever, pneumonia, community acquired. 2. Left pleural based density, again likely infectious, possible atelectasis, longstanding history of tobacco use. 3. Bronchospasm. 4. Shortness of breath most likely secondary to pneumonia. 5. History of human immunodeficiency virus, stable. 6. History of hepatitis C. 7. History of bronchitis. 8. Mediastinal adenopathy and hilar adenopathy, likely reactive, although cannot exclude possible neoplasia versus infectious secondary to infectious etiologies. PLAN: IV antibiotics as per Infectious Disease. Supplemental O2. Inhaled bronchodilators. Short course of IV steroids . Obtain cultures . Also obtain followup chest CT in 6-8 weeks to document resolution of left lower lobe opacity as well as mediastinal and hilar adenopathy. ZHANG ZAMARRIPA M.D. JEFFREY/[id number]
[2017-02-21] MEDS: methylPREDNISolone NA SUCC 40 MG/1 ML VIAL IVPUSH SCH (18:04)
[2017-02-21] MEDS: EFAVIRENZ 600 MG TABLET PO SCH (23:00)
[2017-02-21] MEDS: EMTRICITABINE 200MG/TENOFOVIR 300MG PO SCH (23:00)
[2017-02-22] MEDS ORDERED: PT OWN MED DRAWER 7, Y5N ONE ×3 (02:37→20:45)
[2017-02-22] MEDS: methylPREDNISolone NA SUCC 40 MG/1 ML VIAL IVPUSH SCH ×3 (02:41→18:24)
[2017-02-22 07:25] LABS: BASO % 0.4 % (0-2.0); HEMATOCRIT 37.7 % (35.4-49); HEMOGLOBIN 12.5 GM/dL (11.7-16.9); LYMPH % 30.3 % (8-40); MCH 34.4 pg (25.7-33.7); MEAN CELL VOLUME 104.3 fl (80-96); MEAN PLT VOLUME 8.1 fl (7.5-11.1); MONO % 5.4 % (3.8-10.2); NEUT % 63.9 % (42.8-82.8); PLATELET COUNT 215 K/MM3 (134-434); RBC 3.62 M/mm3 (4.00-5.60); RDW 12.8 % (11.9-15.9); WHITE BLOOD COUNT 5.1 K/mm3 (4.0-10.0)
[2017-02-22 08:00] LABS: ALBUMIN 2.8 g/dl (3.4-5.0); ALK PHOS 71 U/L (45-117); ANION GAP 9 (8-16); BILIRUBIN,TOTAL 0.3 mg/dL (0.2-1.0); BLOOD UREA NITROGEN 10 mg/dL (7-18); CALCIUM 7.7 mg/dL (8.5-10.1); CHLORIDE 111 mmol/L (98-107); CO2 20 mmol/L (21-32); CREATININE 0.5 mg/dL (0.7-1.3); GLUCOSE,RANDOM 109 mg/dL (74-106); MAGNESIUM 2.1 mg/dL (1.8-2.4); PHOSPHOROUS 2.1 mg/dL (2.5-4.9); POTASSIUM 3.9 mmol/L (3.5-5.1); SGOT/AST 20 U/L (15-37); SGPT/ALT 26 U/L (12-78); SODIUM 140 mmol/L (136-145); TOT PROT 6.6 g/dl (6.4-8.2)
[2017-02-22] MEDS: TIOTROPIUM BROMIDE 18 MCG/INH (DEVICE W/ 5 CAPSULES) IH SCH (09:16)
[2017-02-22] MEDS: LORATADINE 10 MG TABLET PO SCH (09:16)
[2017-02-22] MEDS: ATENOLOL 50 MG TABLET (FP) PO SCH (09:16)
[2017-02-22] MEDS: MULTIVITAMINS (DAILY MVI) TABLET (FP) PO SCH (09:16)
[2017-02-22] MEDS: ENOXAPARIN NA (PORCINE) 40 MG/0.4 ML DISP.SYRIN SQ SCH (09:20)
[2017-02-22] MEDS: CEFTRIAXONE 1 G/50 ML PREMIX 50 ML IVPB SCH (09:22)
[2017-02-22] MEDS: ALBUTEROL SO4 2.5/IPRATROPIUM 0.5 INH SOL 3 ML VIAL.NEB. NEB SCH ×4 (09:35→20:55)
[2017-02-22] MEDS: AZITHROMYCIN IVPB 250 MG in DEXTROSE 5%-WATER - 250 ML IVPB SCH (11:24)
[2017-02-22] MEDS: SODIUM CHLORIDE 1,000 ML IV SCH (11:26)
--- NOTE | 2017-02-22 12:16 | PN ---
Physical Exam: SUBJECTIVE: Patient seen and examined. Feeling much better. Encouraged to get oob, walk around the unit. OBJECTIVE: Vital Signs Period Temp Pulse Resp BP Sys/Muñoz Pulse Ox Last 24 Hr 98.1 F-98.5 F 67-87 18-20 86-106/54-68 96-97 GENERAL: The patient is awake, alert, and fully oriented, in no acute distress. LUNGS: Mild scattered rhonchi, improved HEART: Regular rate and rhythm, S1, S2 without murmur, rub or gallop. ABDOMEN: Soft, nontender, nondistended, normoactive bowel sounds, no guarding, no rebound EXTREMITIES: 2+ pulses, warm, well-perfused, no edema. NEUROLOGICAL: Cranial nerves II through XII grossly intact. Normal speech, gait not observed. Laboratory Results - last 24 hr 02/21/17 02/22/17 02/22/17 14:10 07:00 07:00 WBC 5.1 RBC 3.62 L Hgb 12.5 Hct 37.7 MCV 104.3 H MCH 34.4 H MCHC 33.0 RDW 12.8 Plt Count 215 D MPV 8.1 Neutrophils % 63.9 Lymphocytes % 30.3 Monocytes % 5.4 Eosinophils % 0.0 D Basophils % 0.4 Sodium 140 Potassium 3.9 Chloride 111 H Carbon Dioxide 20 L Anion Gap 9 BUN 10 Creatinine 0.5 L Creat Clearance w eGFR > 60 Random Glucose 109 H D Calcium 7.7 L Phosphorus 2.1 L Magnesium 2.1 Total Bilirubin 0.3 D AST 20 D ALT 26 Alkaline Phosphatase 71 Total Protein 6.6 Albumin 2.8 L Urine Color Yellow Urine Appearance Clear Urine pH 6.0 Ur Specific [place] 1.012 Urine Protein Negative Urine Glucose (UA) 1+ H Urine Ketones Negative Urine Blood Negative Urine Nitrite Negative Urine Bilirubin Negative Urine Urobilinogen Negative Ur Leukocyte Esterase Negative Active Medications Generic Name Dose Route Start Last Admin Trade Name Freq PRN Reason Stop Dose Admin Acetaminophen 650 mg 02/20/17 17:47 02/20/17 20:40 Tylenol - PO 650 mg Q6H PRN Administration FEVER Albuterol/Ipratropium 1 amp 02/20/17 22:52 02/22/17 11:20 Duoneb - NEB 1 amp RQID IJEOMA Administration Atenolol 50 mg 02/20/17 17:45 02/22/17 09:16 Tenormin - PO 50 mg DAILY IJEOMA Administration Chlordiazepoxide HCl 25 mg 02/21/17 01:38 Librium - PO Q6H PRN WITHDRAWAL(CONT SUBST) Efavirenz 600 mg 02/20/17 22:00 02/21/17 23:00 Sustiva - PO 600 mg HS IJEOMA Administration Emtricitabine/Tenofovir 1 tab 02/20/17 22:00 02/21/17 23:00 Truvada PO 1 tab HS IJEOMA Administration Enoxaparin Sodium 40 mg 02/21/17 10:00 02/22/17 09:20 Lovenox - SQ 40 mg DAILY IJEOMA Administration CEFTRIAXONE 1 G/50 ML PREMIX 50 mls @ 100 mls/hr 02/20/17 16:45 02/22/17 09: 22 Ceftriaxone 1 Gm-D5w Bag IVPB 100 mls/hr DAILY IJEOMA Administration Azithromycin 250 mg/ Dextrose 250 mls @ 250 mls/hr 02/21/17 10:00 02/22/17 11 :24 IVPB 02/24/17 10:59 250 mls/hr DAILY IJEOMA Administration Sodium Chloride 1,000 mls @ 50 mls/hr 02/21/17 06:31 02/22/17 11:26 Normal Saline - IV 50 mls/hr ASDIR IJEOMA Administration Loratadine 10 mg 02/21/17 10:00 02/22/17 09:16 Claritin - PO 10 mg DAILY IJEOMA Administration Methylprednisolone Sodium Succinate 40 mg 02/21/17 18:00 02/22/17 09:16 Solu-Medrol - IVPUSH 40 mg Q8H-IV IJEOMA Administration Multivitamins/Minerals/Vitamin C 1 tab 02/21/17 10:00 02/22/17 09:16 Tab-A-Vit - PO 1 tab DAILY IJEOMA Administration Nifedipine 90 mg 02/21/17 10:00 Procardia Xl - PO DAILY IJEOMA Tiotropium [place] 1 puff 02/20/17 21:15 02/22/17 09:16 Spiriva - IH 1 puff DAILY IJEOMA Administration ASSESSMENT/PLAN 55 year-old male with HTN, HLD, HIV on Atripla, COPD, alcohol dependence, chronic Hep B, and current everyday smoker, presents with cough, SOB, and subjective fever and chills x 2 weeks. SIRS possibly secondary to CAP --Temp spike to 102.3; tachycardic to 109; mildly diaphoretic --02/20 CT chest: Left lung base opacity, possible pneumonia; RLL centrilobular nodules, inflammatory v. infectious --no leukocytosis --influenza negative --sputum culture pending --empiric ceftriaxone (day #3) and azithro (day #2) --duonebs --ID following Pulmonary nodules Pulmonary lymphadenopathy COPD --additional findings on CT: 4mm sold nodule RUL and 5-6mm solid nodule LLL; right hilar lymph node and mediastinal lymph node larger than previous; increased bronchial wall thickening c/w nonspecific airways disease --per pulmonary, short course of steroids; solumedrol 40mg q8h --continue Spirivashantionebs --will need repeat CT chest in 6-8 weeks HIV --well-controlled, undetectable viral load --continue Atripla Hypertension --has been normotensive --atenolol; continue to hold nifedipine Hyperlipidemia --continue fenofibrate --not on statin Alcohol dependence --monitor for s/s of withdrawal --librium PRN Chronic Hepatitis B --stable Hyponatremia --resolved FEN Fluids: NS @ 50mL/hr Electrolytes: replete as indicated Nutrition: low sodium diet DVT prophylaxis: lovenox, oxochilt, ambulation Physical therapy evaluation Dispo: continues to require inpatient care. Full Code. Visit type - Emergency Visit Emergency Visit: Yes ED Registration Date: 02/20/17 Care time: The patient presented to the Emergency Department on the above date and was hospitalized for further evaluation of their emergent condition. - New Patient This patient is new to me today: No - Critical Care Critical Care patient: No
--- NOTE | 2017-02-22 15:11 | PN ---
Progress Note (short form) - Note Progress Note: PULMONARY Feeling better today. No shortness of breath. Minimal cough. No fevers or chills. Last Vital Signs Temp Pulse Resp BP Pulse Ox 98.3 F 67 18 100/68 97 02/22/17 06:00 02/22/17 06:00 02/22/17 06:00 02/22/17 06:00 02/21/17 21:00 Gen: NAD at rest Heart: RRR Lung: distant breath sounds, no wheezes Abd: soft, nontender Ext: no edema CBC, BMP 02/22/17 07:00 02/22/17 07:00 Active Medications Acetaminophen (Tylenol -) 650 mg PO Q6H PRN PRN Reason: FEVER Last Admin: 02/20/17 20:40 Dose: 650 mg Albuterol/Ipratropium (Duoneb -) 1 amp NEB RQID [facility] Last Admin: 02/22/17 11:20 Dose: 1 amp Atenolol (Tenormin -) 50 mg PO DAILY [facility] Last Admin: 02/22/17 09:16 Dose: 50 mg Chlordiazepoxide HCl (Librium -) 25 mg PO Q6H PRN PRN Reason: WITHDRAWAL(CONT SUBST) Efavirenz (Sustiva -) 600 mg PO HS [facility] Last Admin: 02/21/17 23:00 Dose: 600 mg Emtricitabine/Tenofovir (Truvada) 1 tab PO HS [facility] Last Admin: 02/21/17 23:00 Dose: 1 tab Enoxaparin Sodium (Lovenox -) 40 mg SQ DAILY [facility] Last Admin: 02/22/17 09:20 Dose: 40 mg CEFTRIAXONE 1 G/50 ML PREMIX (Ceftriaxone 1 Gm-D5w Bag) 50 mls @ 100 mls/hr IVPB DAILY [facility] Last Admin: 02/22/17 09:22 Dose: 100 mls/hr Azithromycin 250 mg/ Dextrose 250 mls @ 250 mls/hr IVPB DAILY [facility] Stop: 02/24/17 10:59 Last Admin: 02/22/17 11:24 Dose: 250 mls/hr Loratadine (Claritin -) 10 mg PO DAILY [facility] Last Admin: 02/22/17 09:16 Dose: 10 mg Methylprednisolone Sodium Succinate (Solu-Medrol -) 40 mg IVPUSH Q8H-IV [facility] Last Admin: 02/22/17 09:16 Dose: 40 mg Multivitamins/Minerals/Vitamin C (Tab-A-Vit -) 1 tab PO DAILY [facility] Last Admin: 02/22/17 09:16 Dose: 1 tab Patient's Own Medication (Atripla Tab) 1 each PO DAILY [facility] Tiotropium [place] (Spiriva -) 1 puff IH DAILY [facility] Last Admin: 02/22/17 09:16 Dose: 1 puff A/P Pneumonia Mediastinal Lymphadenopathy HIV h/o Hep B - continue antibiotics - f/u cultures - continue ART - inhaled bronchodilators - will need outpt f/u of chest imaging - DVT prophylaxis
[2017-02-22 17:24] LABS: URINE APPEARANCE SLCLOUDY; URINE BILIRUBIN NEGATIVE (NEGATIVE); URINE BLOOD NEGATIVE (NEGATIVE); URINE COLOR YELLOW; URINE GLUCOSE (UA) 1+ (NEGATIVE); URINE KETONE NEGATIVE (NEGATIVE); URINE LEUK ESTERASE NEGATIVE (NEGATIVE); URINE NITRITE NEGATIVE (NEGATIVE); URINE PROTEIN NEGATIVE (NEGATIVE); URINE UROBILINOGEN NEGATIVE mg/dL (0.2-1.0)
[2017-02-22] MEDS: EMTRICITABINE 200MG/TENOFOVIR 300MG PO SCH (21:26)
[2017-02-22] MEDS: EFAVIRENZ 600 MG TABLET PO SCH (21:26)
[2017-02-23] MEDS: methylPREDNISolone NA SUCC 40 MG/1 ML VIAL IVPUSH SCH ×4 (02:10→21:52)
[2017-02-23] MEDS: ALBUTEROL SO4 2.5/IPRATROPIUM 0.5 INH SOL 3 ML VIAL.NEB. NEB SCH ×4 (08:44→21:10)
[2017-02-23] MEDS: AZITHROMYCIN IVPB 250 MG in DEXTROSE 5%-WATER - 250 ML IVPB SCH (09:27)
[2017-02-23] MEDS: MULTIVITAMINS (DAILY MVI) TABLET (FP) PO SCH (09:32)
[2017-02-23] MEDS: ATENOLOL 50 MG TABLET (FP) PO SCH (09:32)
[2017-02-23] MEDS: LORATADINE 10 MG TABLET PO SCH (09:32)
[2017-02-23] MEDS: CEFTRIAXONE 1 G/50 ML PREMIX 50 ML IVPB SCH (09:32)
[2017-02-23] MEDS: ENOXAPARIN NA (PORCINE) 40 MG/0.4 ML DISP.SYRIN SQ SCH (09:33)
[2017-02-23] MEDS: ATRIPLA PO SCH (09:33)
[2017-02-23] MEDS: TIOTROPIUM BROMIDE 18 MCG/INH (DEVICE W/ 5 CAPSULES) IH SCH (09:33)
--- NOTE | 2017-02-23 14:07 | PN ---
Progress Note (short form) - Note Progress Note: PULMONARY Continues to feel better. No shortness of breath. Minimal cough. No fevers or chills. Last Vital Signs Temp Pulse Resp BP Pulse Ox 97.9 F 108 H 18 121/79 97 02/23/17 10:00 02/23/17 10:00 02/23/17 10:00 02/23/17 10:00 02/23/17 10:00 Gen: NAD at rest Heart: RRR Lung: distant breath sounds, no wheezes Abd: soft, nontender Ext: no edema CBC, BMP 02/22/17 07:00 02/22/17 07:00 Active Medications Acetaminophen (Tylenol -) 650 mg PO Q6H PRN PRN Reason: FEVER Last Admin: 02/20/17 20:40 Dose: 650 mg Albuterol/Ipratropium (Duoneb -) 1 amp NEB RQID [facility] Last Admin: 02/23/17 12:18 Dose: 1 amp Atenolol (Tenormin -) 50 mg PO DAILY [facility] Last Admin: 02/23/17 09:32 Dose: 50 mg Chlordiazepoxide HCl (Librium -) 25 mg PO Q6H PRN PRN Reason: WITHDRAWAL(CONT SUBST) Efavirenz (Sustiva -) 600 mg PO HS [facility] Last Admin: 02/22/17 21:26 Dose: 600 mg Emtricitabine/Tenofovir (Truvada) 1 tab PO HS [facility] Last Admin: 02/22/17 21:26 Dose: 1 tab Enoxaparin Sodium (Lovenox -) 40 mg SQ DAILY [facility] Last Admin: 02/23/17 09:33 Dose: 40 mg CEFTRIAXONE 1 G/50 ML PREMIX (Ceftriaxone 1 Gm-D5w Bag) 50 mls @ 100 mls/hr IVPB DAILY [facility] Last Admin: 02/23/17 09:32 Dose: 100 mls/hr Azithromycin 250 mg/ Dextrose 250 mls @ 250 mls/hr IVPB DAILY [facility] Stop: 02/24/17 10:59 Last Admin: 02/23/17 09:27 Dose: 250 mls/hr Loratadine (Claritin -) 10 mg PO DAILY [facility] Last Admin: 02/23/17 09:32 Dose: 10 mg Methylprednisolone Sodium Succinate (Solu-Medrol -) 40 mg IVPUSH Q8H-IV [facility] Last Admin: 02/23/17 09:33 Dose: 40 mg Multivitamins/Minerals/Vitamin C (Tab-A-Vit -) 1 tab PO DAILY IJEOMA Last Admin: 02/23/17 09:32 Dose: 1 tab Patient's Own Medication (Atripla Tab) 1 each PO DAILY IJEOMA Last Admin: 02/23/17 09:33 Dose: 1 each Tiotropium [place] (Spiriva -) 1 puff IH DAILY [facility] Last Admin: 02/23/17 09:33 Dose: 1 puff A/P Pneumonia Mediastinal Lymphadenopathy HIV h/o Hep B - continue antibiotics - f/u cultures - can d/c steroids in AM - continue ART - inhaled bronchodilators - will need outpt f/u of chest imaging - DVT prophylaxis
--- NOTE | 2017-02-23 19:46 | PN ---
Physical Exam: SUBJECTIVE: Patient seen and examined. States feels much better. OBJECTIVE: Vital Signs Period Temp Pulse Resp BP Sys/Muñoz Pulse Ox Last 24 Hr 97.4 F-97.9 F 64-108 18-20 100-121/63-79 97-99 GENERAL: The patient is awake, alert, and fully oriented, in no acute distress. LUNGS: Scattered rhonchi HEART: Regular rate and rhythm, S1, S2 without murmur, rub or gallop. ABDOMEN: Soft, nontender, nondistended, normoactive bowel sounds, no guarding, no rebound EXTREMITIES: 2+ pulses, warm, well-perfused, no edema. NEUROLOGICAL: Cranial nerves II through XII grossly intact. Normal speech, gait not observed. Active Medications Generic Name Dose Route Start Last Admin Trade Name Freq PRN Reason Stop Dose Admin Acetaminophen 650 mg 02/20/17 17:47 02/20/17 20:40 Tylenol - PO 650 mg Q6H PRN Administration FEVER Albuterol/Ipratropium 1 amp 02/20/17 22:52 02/23/17 15:35 Duoneb - NEB 1 amp RQID IJEOMA Administration Atenolol 50 mg 02/20/17 17:45 02/23/17 09:32 Tenormin - PO 50 mg DAILY IJEOMA Administration Chlordiazepoxide HCl 25 mg 02/21/17 01:38 Librium - PO Q6H PRN WITHDRAWAL(CONT SUBST) Efavirenz 600 mg 02/20/17 22:00 02/22/17 21:26 Sustiva - PO 600 mg HS IJEOMA Administration Emtricitabine/Tenofovir 1 tab 02/20/17 22:00 02/22/17 21:26 Truvada PO 1 tab HS IJEOMA Administration Enoxaparin Sodium 40 mg 02/21/17 10:00 02/23/17 09:33 Lovenox - SQ 40 mg DAILY IJEOMA Administration CEFTRIAXONE 1 G/50 ML PREMIX 50 mls @ 100 mls/hr 02/20/17 16:45 02/23/17 09: 32 Ceftriaxone 1 Gm-D5w Bag IVPB 100 mls/hr DAILY IJEOMA Administration Azithromycin 250 mg/ Dextrose 250 mls @ 250 mls/hr 02/21/17 10:00 02/23/17 09 :27 IVPB 02/24/17 10:59 250 mls/hr DAILY IJEOMA Administration Loratadine 10 mg 02/21/17 10:00 02/23/17 09:32 Claritin - PO 10 mg DAILY IJEOMA Administration Methylprednisolone Sodium Succinate 40 mg 02/21/17 18:00 02/23/17 18:06 Solu-Medrol - IVPUSH 40 mg Q8H-IV IJEOMA Administration Multivitamins/Minerals/Vitamin C 1 tab 02/21/17 10:00 02/23/17 09:32 Tab-A-Vit - PO 1 tab DAILY IJEOMA Administration Patient's Own 1 each 02/23/17 10:00 02/23/17 09:33 Medication (Atripla PO 1 each Tab) DAILY IJEOMA Administration Tiotropium [place] 1 puff 02/20/17 21:15 02/23/17 09:33 Spiriva - IH 1 puff DAILY IJEOMA Administration ASSESSMENT/PLAN: 55 year-old male with HTN, HLD, HIV on Atripla, COPD, alcohol dependence, chronic Hep B, and current everyday smoker, presents with cough, SOB, and subjective fever and chills x 2 weeks. SIRS likely secondary to CAP --Temp spike to 102.3; tachycardic to 109; mildly diaphoretic --02/20 CT chest: Left lung base opacity, possible pneumonia; RLL centrilobular nodules, inflammatory v. infectious --no leukocytosis --influenza negative --sputum culture pending --empiric ceftriaxone (day #4) and azithro (day #3) --duonebs --ID following Pulmonary nodules Pulmonary lymphadenopathy COPD --additional findings on CT: 4mm sold nodule RUL and 5-6mm solid nodule LLL; right hilar lymph node and mediastinal lymph node larger than previous; increased bronchial wall thickening c/w nonspecific airways disease --per pulmonary, short course of steroids; tapering solumedrol --continue Spiriva, duonebs --will need repeat CT chest in 6-8 weeks HIV --well-controlled, undetectable viral load --continue Atripla Hypertension --has been normotensive --atenolol; continue to hold nifedipine Hyperlipidemia --continue fenofibrate --not on statin Alcohol dependence --monitor for s/s of withdrawal --librium PRN Chronic Hepatitis B --stable Hyponatremia --resolved FEN Fluids: PO intake adequate Electrolytes: replete as indicated Nutrition: low sodium diet DVT prophylaxis: lovenox, oob, ambulation Physical therapy evaluation Dispo: continues to require inpatient care. Full Code. Visit type - Emergency Visit Emergency Visit: Yes ED Registration Date: 02/20/17 Care time: The patient presented to the Emergency Department on the above date and was hospitalized for further evaluation of their emergent condition. - New Patient This patient is new to me today: No - Critical Care Critical Care patient: No
[2017-02-23] MEDS ORDERED: PT OWN MED DRAWER 7, Y5N ONE (20:09)
[2017-02-23] MEDS: EFAVIRENZ 600 MG TABLET PO SCH (21:54)
[2017-02-23] MEDS: EMTRICITABINE 200MG/TENOFOVIR 300MG PO SCH (21:54)
[2017-02-24] MEDS: ALBUTEROL SO4 2.5/IPRATROPIUM 0.5 INH SOL 3 ML VIAL.NEB. NEB SCH ×2 (09:05→12:30)
[2017-02-24] MEDS ORDERED: PT OWN MED DRAWER 7, Y5N ONE ×2 (09:35→11:54)
[2017-02-24] MEDS: CEFTRIAXONE 1 G/50 ML PREMIX 50 ML IVPB SCH (09:41)
[2017-02-24] MEDS: AZITHROMYCIN IVPB 250 MG in DEXTROSE 5%-WATER - 250 ML IVPB SCH (09:42)
[2017-02-24] MEDS: LORATADINE 10 MG TABLET PO SCH (09:45)
[2017-02-24] MEDS: ENOXAPARIN NA (PORCINE) 40 MG/0.4 ML DISP.SYRIN SQ SCH (09:46)
[2017-02-24] MEDS: methylPREDNISolone NA SUCC 40 MG/1 ML VIAL IVPUSH SCH (09:46)
[2017-02-24] MEDS: ATRIPLA PO SCH (09:46)
[2017-02-24] MEDS: MULTIVITAMINS (DAILY MVI) TABLET (FP) PO SCH (09:46)
[2017-02-24] MEDS: ATENOLOL 50 MG TABLET (FP) PO SCH (09:46)
[2017-02-24 10:18] VITALS: BP 111/67; PULSE 65; TEMP 98.9
[2017-02-24] MEDS: TIOTROPIUM BROMIDE 18 MCG/INH (DEVICE W/ 5 CAPSULES) IH SCH (11:51)
== END 2017-02-24 12:20 | disposition home or self-care (01) | DRG 720 ==
LOC: JER 10:44 → JERBED 16:10 → J5S 02-21 12:16
PROVIDERS: ADMIT Internal Medicine; ATTEND Nurse Practitioner Acute Care
DX: R65.10 Systemic inflammatory response syndrome (SIRS) of non-infectious origin without acute organ dysfunction (principal); J18.9 Pneumonia, unspecified organism; I10 Essential (primary) hypertension; Z21 Asymptomatic human immunodeficiency virus [HIV] infection status; E78.5 Hyperlipidemia, unspecified; R91.1 Solitary pulmonary nodule; F10.20 Alcohol dependence, uncomplicated; E87.1 Hypo-osmolality and hyponatremia; B18.1 Chronic viral hepatitis B without delta-agent; R63.4 Abnormal weight loss; R59.0 Localized enlarged lymph nodes; J44.1 Chronic obstructive pulmonary disease with (acute) exacerbation; Z68.1 Body mass index [BMI] 19.9 or less, adult; Z87.891 Personal history of nicotine dependence
CPT/HCPCS: 36415; 71046-TC; 71260-TC; 80053; 81003; 81015; 82550; 82803; 83605; 83615; 83735; 84100; 84484; 85025; 85610; 85730; 86850; 86900; 86901; 87040; 87070; 87086; 87186; 87205; 87804; 93005; 93010; 94640; 99285-25

== ENCOUNTER 2017-03-15 14:22 | Emergency (ER) | payer OTHER ==
[2017-03-15 14:34] VITALS: BP 119/74; PULSE 85; TEMP 97.4; BMI 16.6
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
== END 2017-03-15 15:32 | disposition home or self-care (01) ==
LOC: JERFT 14:22
DX: T24.212A Burn of second degree of left thigh, initial encounter (principal); X12.XXXA Contact with other hot fluids, initial encounter; Y93.89 Activity, other specified; Y92.89 Other specified places as the place of occurrence of the external cause; Y99.8 Other external cause status; I10 Essential (primary) hypertension; J44.9 Chronic obstructive pulmonary disease, unspecified; Z21 Asymptomatic human immunodeficiency virus [HIV] infection status; E78.00 Pure hypercholesterolemia, unspecified; B18.1 Chronic viral hepatitis B without delta-agent; F17.210 Nicotine dependence, cigarettes, uncomplicated; J42 Unspecified chronic bronchitis
CPT/HCPCS: 99281-25

== ENCOUNTER → 2018-10-05 | Outpatient (CLI) | payer OTHER | LOC: YHH 10:48 ==

== ENCOUNTER 2019-02-01 15:38 | Emergency (ER) | payer OTHER ==
[2019-02-01 15:57] VITALS: TEMP 98; BMI 18.2
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
[2019-02-01 18:17] LABS: BASO % 0.9 % (0-2.0); EOS % 0.3 % (0-4.5); HEMATOCRIT 44.5 % (35.4-49); HEMOGLOBIN 14.7 GM/dL (11.7-16.9); LYMPH % 23.8 % (8-40); MCH 34.3 pg (25.7-33.7); MCHC 33.1 g/dl (32.0-35.9); MEAN CELL VOLUME 103.6 fl (80-96); MEAN PLT VOLUME 7.8 fl (7.5-11.1); MONO % 7.9 % (3.8-10.2); NEUT % 67.1 % (42.8-82.8); PLATELET COUNT 272 K/MM3 (134-434); RDW 12.9 % (11.9-15.9); WHITE BLOOD COUNT 7.4 K/mm3 (4.0-10.0)
[2019-02-01 18:51] LABS: ALK PHOS 97 U/L (45-117); ANION GAP 3 MMOL/L (8-16); BILIRUBIN,TOTAL 0.6 mg/dL (0.2-1); BLOOD UREA NITROGEN 10.9 mg/dL (7-18); CALCIUM 8.9 mg/dL (8.5-10.1); CHLORIDE 106 mmol/L (98-107); CO2 30 mmol/L (21-32); CREATININE 0.8 mg/dL (0.55-1.3); GLUCOSE,RANDOM 94 mg/dL (74-106); POTASSIUM 4.5 mmol/L (3.5-5.1); SGOT/AST 24 U/L (15-37); SGPT/ALT 31 U/L (13-61); SODIUM 140 mmol/L (136-145); TOT PROT 7.8 g/dl (6.4-8.2)
[2019-02-01] MEDS ORDERED: ALBUTEROL SO4 2.5/IPRATROPIUM 0.5 INH SOL 3 ML VIAL.NEB. NEB ONE ×2 (19:44→20:17)
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
[2019-02-01 20:22] LABS: METHADONE, UR NEGATIVE ng/ml (CUTOFF=300); URINE AMPHETAMINES NEGATIVE ng/ml (CUTOFF=500); URINE BARBITURATES NEGATIVE ng/ml (CUTOFF=200); URINE BENZODIAZEPINES NEGATIVE ng/ml (CUTOFF=200)
[2019-02-01 20:24] LABS: COCAINE, UR POSITIVE ng/ml (CUTOFF=300); OPIATES, URI POSITIVE ng/ml (CUTOFF=300); PHENCYCLIDINE,URINE POSITIVE ng/ml (CUTOFF=25)
[2019-02-01 20:54] VITALS: BP 111/67; PULSE 84
--- NOTE | 2019-02-02 10:15 | EKG ---
Test Reason : Blood Pressure : / mmHG Vent. Rate : 069 BPM Atrial Rate : 069 BPM P-R Int : 138 ms QRS Dur : 090 ms QT Int : 384 ms P-R-T Axes : 084 083 084 degrees QTc Int : 411 ms NORMAL SINUS RHYTHM POSSIBLE LEFT ATRIAL ENLARGEMENT POSSIBLE ANTERIOR INFARCT , AGE UNDETERMINED ABNORMAL ECG WHEN COMPARED WITH ECG OF 01-FEB-2019 15:59, T WAVE AMPLITUDE HAS INCREASED IN INFERIOR LEADS Confirmed by Samir Warner MD ([id number]) on 02/02/2019 10:15:18 AM Referred By: Confirmed By:Samir Warner MD
--- NOTE | 2019-02-05 14:07 | EKG ---
Test Reason : Blood Pressure : / mmHG Vent. Rate : 098 BPM Atrial Rate : 098 BPM P-R Int : 134 ms QRS Dur : 092 ms QT Int : 336 ms P-R-T Axes : 080 076 072 degrees QTc Int : 428 ms NORMAL SINUS RHYTHM NORMAL ECG WHEN COMPARED WITH ECG OF 20-FEB-2017 12:01, NO SIGNIFICANT CHANGE WAS FOUND Confirmed by NEO ROGERS MD ([id number]) on 02/05/2019 2:07:40 PM Referred By: Confirmed By:NEO ROGERS MD
== END 2019-02-01 21:39 | disposition home or self-care (01) ==
LOC: JER 15:38
PROC: 3E0F7GC Introduction of Other Therapeutic Substance into Respiratory Tract, Via Natural or Artificial Opening (ICD-10-PCS; principal; 2019-02-01)
DX: T40.2X1A Poisoning by other opioids, accidental (unintentional), initial encounter (principal); R09.02 Hypoxemia; F12.10 Cannabis abuse, uncomplicated; R55 Syncope and collapse; I10 Essential (primary) hypertension; J44.9 Chronic obstructive pulmonary disease, unspecified; E78.5 Hyperlipidemia, unspecified; B19.10 Unspecified viral hepatitis B without hepatic coma; Z21 Asymptomatic human immunodeficiency virus [HIV] infection status; F17.210 Nicotine dependence, cigarettes, uncomplicated; F14.10 Cocaine abuse, uncomplicated; F16.10 Hallucinogen abuse, uncomplicated
CPT/HCPCS: 36415; 71045-TC-FY; 80053; 80307; 83735; 84484; 85025; 93005; 93010; 99282-25

== ENCOUNTER 2021-08-16 07:14 | Emergency (ER) | payer OTHER ==
[2021-08-16 07:40] VITALS: BP 126/74; PULSE 89; TEMP 98.4; BMI 16.9
[2021-08-16] MEDS ORDERED: AZITHROMYCIN 250 MG TABLET PO ONE (08:12)
[2021-08-16] MEDS ORDERED: AZITHROMYCIN 500 MG TABLET ONE (08:18)
== END 2021-08-16 08:38 | disposition home or self-care (01) ==
LOC: FER 07:14
DX: R05.9 Cough, unspecified (principal)
CPT/HCPCS: 71046-TC-FY; 99284-25; C9803-CS; U0003; U0005